=== PATIENT | male | born 1930 | race Caucasian/White ===

== ENCOUNTER 2020-04-19 18:58 | Emergency (ER) | payer OTHER ==
--- NOTE | 2020-04-19 19:41 | EDM.PDOC ---
ED HPI GENERAL MEDICAL PROBLEM - General Chief Complaint: General Stated Complaint: PAIN URINATING Time Seen by Provider: 04/19/20 19:25 Source of Information: Reports: Patient History Limitations: Reports: No Limitations - History of Present Illness INITIAL COMMENTS - FREE TEXT/NARRATIVE: 89 YO WM PRESENTS TO ER COMPLAINING OF 1 DAY OF DYSURIA WITH INCREASED FREQUENCY. PT REPORTS HE WAS DRIVING HOME TODAY AND NOTICED SOME URINARY URGENCY. PT REPORTS WHEN TRYING TO VOID IT BECAME PAINFUL AND HE'S HAD INCREASED FREQUENCY SINCE SYMPTOMS BEGAN. PT REPORTS PAIN IS ONLY WITH URINATION. PT DENIES FEVER/CHILLS, NO BACK PAIN, NO LOWER ABDOMINAL PAIN, NO NAUSEA/VOMITING. PT REPORTS HE TAKES FLOMAX FOR HIS PROSTATE. PT DENIES HISTORY OF URINARY RETENTION REQUIRING CATHETERIZATION. Onset: Today Location: Reports: Abdomen Quality: Reports: Burning Severity: Mild Improves with: Reports: None Worsens with: Reports: None Associated Symptoms: Reports: No Other Symptoms. Denies: Chest Pain, Fever/Chills, Nausea/Vomiting, Rash, Shortness of Breath - Related Data Allergies Allergy/AdvReac Type Severity Reaction Status Date / Time No Known Drug Allergies Allergy Cannot Verified 04/19/20 19:29 Remember Home Meds: Home Meds Nitrofurantoin Monohyd/M-Cryst [Macrobid 100 mg Capsule] 100 mg PO BID #14 capsule 04/19/20 [Rx] Phenazopyridine HCl [Pyridium] 200 mg PO BID #6 tablet 04/19/20 [Rx] Past Medical History HEENT History: Reports: Cataract, Hard of Hearing, Impaired Vision Cardiovascular History: Reports: Afib, Blood Clots/VTE/DVT Gastrointestinal History: Reports: Chronic Diarrhea Genitourinary History: Reports: BPH Musculoskeletal History: Reports: Arthritis, Fracture Hematologic History: Reports: Blood Transfusion(s) - Past Surgical History Head Surgeries/Procedures: Reports: None HEENT Surgical History: Reports: Cataract Surgery Cardiovascular Surgical History: Reports: None GI Surgical History: Reports: Appendectomy, Colonoscopy, Hernia, Inguinal Musculoskeletal Surgical History: Reports: None Social & Family History - Caffeine Use Caffeine Use: Reports: Coffee, Soda ED ROS GENERAL - Review of Systems Review Of Systems: See Below Constitutional: Reports: No Symptoms HEENT: Reports: No Symptoms Respiratory: Reports: No Symptoms Cardiovascular: Reports: No Symptoms Endocrine: Reports: No Symptoms GI/Abdominal: Reports: No Symptoms : Reports: Dysuria, Frequency, Pain, Urgency Musculoskeletal: Reports: No Symptoms Skin: Reports: No Symptoms Neurological: Reports: No Symptoms Psychiatric: Reports: No Symptoms Hematologic/Lymphatic: Reports: No Symptoms Immunologic: Reports: No Symptoms ED EXAM, GENERAL - Physical Exam Exam: See Below Exam Limited By: No Limitations General Appearance: Alert, WD/WN, No Apparent Distress Head: Atraumatic, Normocephalic Neck: Normal Inspection, Supple, Non-Tender, Full Range of Motion Respiratory/Chest: No Respiratory Distress, Lungs Clear, Normal Breath Sounds, No Accessory Muscle Use, Chest Non-Tender Cardiovascular: Normal Peripheral Pulses, Regular Rate, Rhythm, No Edema, No Gallop, No JVD, No Murmur, No Rub GI/Abdominal: Normal Bowel Sounds, Soft, Non-Tender, No Organomegaly, No Distention, No Abnormal Bruit, No Mass (Male) Exam: No Hernia, Normal Inspection Back Exam: Normal Inspection, Full Range of Motion, NT Extremities: Normal Inspection, Normal Range of Motion, Non-Tender, Normal Capillary Refill, No Pedal Edema Neurological: Alert, Oriented, CN II-XII Intact, Normal Cognition, Normal Gait, No Motor/Sensory Deficits Psychiatric: Normal Affect, Normal Mood Skin Exam: Warm, Dry, Intact, Normal Color, No Rash Lymphatic: No Adenopathy Course - Vital Signs Last Recorded V/S: Last Vital Signs Temp 98.0 F 04/19/20 19:03 Pulse 89 04/19/20 19:03 Resp 12 04/19/20 19:03 BP 132/74 04/19/20 19:03 Pulse Ox 95 04/19/20 19:03 - Orders/Labs/Meds Orders: Active Orders 24 hr Category Date Time Status Bladder Scan [RC] ASDIRECTED Care 04/19/20 19:18 Active CULTURE URINE [RM] Stat Lab 04/19/20 19:00 Received Labs: Laboratory Tests 04/19/20 Range/Units 19:00 Specimen Type Urinvoid Urine Color Yellow (YELLOW) Urine Appearance Turbid H (CLEAR) Urine pH 5.5 (5.0-9.0) Ur Specific [place] 1.015 (1.005-1.030) Urine Protein Trace H (NEGATIVE) mg/dL Urine Glucose (UA) Negative (NEGATIVE) mg/dL Urine Ketones Negative (NEGATIVE) mg/dL Urine Occult Blood Moderate H (NEGATIVE) Urine Nitrite Positive H (NEGATIVE) Urine Bilirubin Negative (NEGATIVE) Urine Urobilinogen 0.2 (0.2-1.0) E.U./dL Ur Leukocyte Esterase Large H (NEGATIVE) Urine RBC 0-5 (0-5) /HPF Urine WBC Semi-packed (0-5) /HPF Ur Epithelial Cells Rare /LPF Urine Bacteria Few (NONE TO FEW) /HPF - Radiology Interpretation Free Text/Narrative:: BLADDER SCAN REVEALED 300CC POST VOID RESIDUAL. PT HAVING A LOT OF DIFFICULTY URINATING AND PATIENT REQUESTED BEAVER CATH PLACEMENT. RECOMMENDING CONTINUING FLOMAX AND HAVING BEAVER REMOVED NEXT 2-3 DAYS WITH BLADDER TRAINING. Departure - Departure Time of Disposition: 20:20 Disposition: Home, Self-Care 01 Condition: Good Clinical Impression: UTI, Urinary tract infectious disease, Urinary retention due to benign prostatic hyperplasia - Discharge Information Prescriptions: Nitrofurantoin Monohyd/M-Cryst [Macrobid 100 mg Capsule] 100 mg PO BID #14 ca psule Phenazopyridine HCl [Pyridium] 200 mg PO BID #6 tablet Instructions: Urinary Tract Infection, Adult, Acute Urinary Retention, Male, [id number] Referrals: PCP,Not In Area [Primary Care Provider] - Forms: ED Department Discharge Additional Instructions: 1. DISCHARGE HOME 2. MACROBID 100MG TWICE X DAY X 7 DAYS 3. PYRIDIUM 200MG TWICE/DAY X 3 DAYS NEEDED FOR PAIN 4. FOLLOW UP WITH PCP NEXT 48-72 HOURS FOR URINE CULTURE RESULTS AND BEAVER REMOVAL 5. RETURN TO ER FOR WORSENING SYMPTOMS Sepsis Event Note (ED) - Evaluation Sepsis Screening Result: No Definite Risk - Focused Exam Vital Signs: Vital Signs Temp Pulse Resp BP Pulse Ox 04/19/20 19:03 98.0 F 89 12 132/74 95 - My Orders Last 24 Hours: My Active Orders 04/19/20 19:00 CULTURE URINE [RM] Stat 04/19/20 19:18 Bladder Scan [RC] ASDIRECTED - Assessment/Plan Last 24 Hours: My Active Orders 04/19/20 19:00 CULTURE URINE [RM] Stat 04/19/20 19:18 Bladder Scan [RC] ASDIRECTED Assessment:: 1. URINARY TRACT INFECTION Plan: 1. DISCHARGE HOME 2. MACROBID 100MG TWICE X DAY X 7 DAYS 3. PYRIDIUM 200MG TWICE/DAY X 3 DAYS NEEDED FOR PAIN 4. FOLLOW UP WITH PCP NEXT 48-72 HOURS FOR URINE CULTURE RESULTS AND BEAVER REMOVAL 5. RETURN TO ER FOR WORSENING SYMPTOMS
[2020-04-19] MEDS ORDERED: cefTRIAXone 1 GM Vial IM ONE (20:05)
[2020-04-19] MEDS ORDERED: Lidocaine 1% 20 ML MDV ONE (20:14)
[2020-04-19] MEDS ORDERED: Lidocaine 1% 20 ML MDV INJECT ONE (20:14)
[2020-04-19] MEDS ORDERED: Phenazopyridine 100 MG Tab PO PRN (20:19)
== END 2020-04-19 21:00 | disposition home or self-care (01) ==
LOC: KA.ED 18:58
DX: N39.0 Urinary tract infection, site not specified (principal); N40.1 Benign prostatic hyperplasia with lower urinary tract symptoms; R33.8 Other retention of urine; I48.91 Unspecified atrial fibrillation
CPT/HCPCS: 51702; 51798; 81001; 87086; 87088; 87186; 96372; 99283-25; 99284; A9270-GY; J0696